=== PATIENT | female | born 2000 | race Caucasian/White ===

== ENCOUNTER 2020-11-19 00:56 | Emergency (ER) | payer BC ==
[~2020-11-19] VITALS: Ht 175.3 cm; Wt 118.8 kg
[2020-11-19 02:33] LABS: BASOPHILS # (AUTO) 0.1 10^3/uL (0.0-0.1); BASOPHILS % (AUTO) 1 % (0-10); EOSINOPHILS # (AUTO) 0.2 10^3/uL (0.0-0.3); EOSINOPHILS % (AUTO) 2 % (0-10); HEMATOCRIT 41 % (35-52); HEMOGLOBIN 13.3 g/dL (11.5-16.0); LYMPHOCYTES # (AUTO) 2.3 10^3/uL (1.0-4.0); LYMPHOCYTES % (AUTO) 19 % (12-44); MEAN CORPUSCULAR HEMOGLOBIN 28 pg (25-34); MEAN CORPUSCULAR HGB CONC 33 g/dL (32-36); MEAN CORPUSCULAR VOLUME 87 fL (80-99); MEAN PLATELET VOLUME 9.1 fL (9.0-12.2); MONOCYTES # (AUTO) 0.7 10^3/uL (0.0-1.0); MONOCYTES % (AUTO) 6 % (0-12); NEUTROPHILS # (AUTO) 8.6 10^3/uL (1.8-7.8); NEUTROPHILS % (AUTO) 73 % (42-75); PLATELET COUNT 431 10^3/uL (130-400); WHITE BLOOD COUNT 11.9 10^3/uL (4.3-11.0)
[2020-11-19 02:34] LABS: BILIRUBIN,URINE NEGATIVE (NEGATIVE); CLARITY,URINE CLEAR; COLOR,URINE YELLOW; GLUCOSE, URINE (UA) NEGATIVE (NEGATIVE); KETONES,URINE NEGATIVE (NEGATIVE); LEUKOCYTE ESTERASE ,URINE NEGATIVE (NEGATIVE); NITRITE,URINE NEGATIVE (NEGATIVE); PROTEIN,URINE NEGATIVE (NEGATIVE)
[2020-11-19 02:42] LABS: ALBUMIN 4.1 GM/DL (3.2-4.5)
[2020-11-19 02:42] LABS: BACTERIA,URINE NEGATIVE /HPF; SQUAMOUS EPITHELIAL CELL,UR 0-2 /HPF
[2020-11-19 02:43] LABS: POTASSIUM 3.7 MMOL/L (3.6-5.0)
[2020-11-19 02:44] LABS: CALCIUM 9.6 MG/DL (8.5-10.1)
[2020-11-19 02:45] LABS: TOTAL PROTEIN 7.7 GM/DL (6.4-8.2)
[2020-11-19 02:47] LABS: BILIRUBIN,TOTAL 0.4 MG/DL (0.1-1.0)
[2020-11-19 02:49] LABS: CREATININE SERUM 0.72 MG/DL (0.60-1.30)
--- NOTE | 2020-11-19 02:58 | ED Abdominal Pain ---
General Chief Complaint: Abdominal/GI Problems Stated Complaint: ABD PAIN / NAUSEA Nursing Triage Note: TO ED VIA POV AND AMBULATORY TO ROOM 6 WITH C/O ABD PAIN THAT RADIATES TO BACK. STARTED AT APPROX 1800 AND NOW WORSE. NAUSEA EARLIER THIS EVENING, BUT NOT AT THIS TIME. DENIES VOMITING/DIARRHEA. Source of Information: Patient History of Present Illness Date Seen by Provider: Nov 19, 2020 Time Seen by Provider: 02:15 Initial Comments PT ARRIVES VIA POV FROM HOME--PT IS [employer] C/O GENERALIZED ABDOMINAL PAIN SINCE AROUND 1800 TONIGHT PAIN COMES AND GOES, AND IS WORSE WITH MOVEMENTS, AND BETTER WHEN LAYING STILL. DOES NOT HAVE MUCH PAIN RIGHT NOW ATE AROUND 1700 AND PAIN BEGAN ABOUT AN HOUR AFTER SHE ATE. ATE A CHICKEN WRAP FROM [place] HAS HAD COFFEE TO DRINK SINCE THEN HAS HAD MILD NAUSEA, NO VOMITING HAD VERY SMALL BM AROUND 1900, HAD NORMAL BM YESTERDAY NO FEVER NO URINARY SYMPTOMS DOES HAVE SOME MID BACK PAIN WELL HAS NOT TAKEN ANYTHING FOR PAIN HAD A SIMILAR EPISODE ABOUT 2 MONTHS AGO, BUT ONLY LASTED ABOUT AN HOUR AND WENT AWAY, BUT ALSO OCCURRED AFTER SHE ATE DID NOT SEEK CARE AT THAT TIME STARTED ON ANXIETY MEDICATION ABOUT 2 MONTHS AGO PCP: PT IS [employer] FROM [place] [place] Allergies and Home Medications Allergies Coded Allergies: No Known Drug Allergies (Unverified , 11/19/20) Home Medications Hyoscyamine Sulfate 0.125 Mg Tab.subl, 0.25 MG SL Q4H Prescribed by: ADRIANNA CRUZ on 11/19/20421 Ondansetron 4 Mg Tab.rapdis, 4 MG PO Q4H Prescribed by: ADRIANNA CRUZ on 11/19/20421 Pantoprazole Sodium 40 Mg Tablet.dr, 40 MG PO DAILY Prescribed by: ADRIANNA CRUZ on 11/19/20421 Patient Home Medication List Home Medication List Reviewed: Yes Review of Systems Review of Systems Constitutional: no symptoms reported Respiratory: No Symptoms Reported Cardiovascular: No Symptoms Reported Gastrointestinal: See HPI, Abdominal Pain, Constipated; Denies Diarrhea; Nausea; Denies Vomiting Genitourinary: No Symptoms Reported Musculoskeletal: back pain Skin: no symptoms reported Psychiatric/Neurological: No Symptoms Reported Endocrine: No Symptoms Reported Past Vlyjqie-Brbyjz-Uigmrs Hx Patient Social History Tobacco Use?: No Substance use?: No Alcohol Use?: Yes Alcohol Frequency: Once in a while Immunizations Up To Date First/Initial COVID19 Vaccinat: MAY Second COVID19 Vaccination Stew: JUNE COVID19 Vaccine Compliance Specialist: GHULAM Past Medical History Surgeries: No Respiratory: No Cardiac: No Neurological: No Last Menstrual Period: Nov 18, 2020 Reproductive Disorders: No Gastrointestinal: No Musculoskeletal: No Endocrine: Yes (OBESITY) Psychosocial: Yes Anxiety Integumentary: No Blood Disorders: No Physical Exam Vital Signs Vital Signs - First Documented 11/19/20 01:52 Temp 37.0 Pulse 88 Resp 16 B/P (MAP) 152/94 (113) Pulse Ox 97 O2 Delivery Room Air Capillary Refill : Less Than 3 Seconds Height/Weight/BMI Height: '" Weight: lbs. oz. kg; 38.00 BMI Method: General Appearance: WD/WN, no apparent distress, obese, other (TEXTING ON PHONE, DOES NOT APPEAR TO BE IN ANY DISCOMFORT OR DISTRESS. WALKS UPRIGHT AND MOVES WITHOUT DIFFICULTY) Respiratory: normal breath sounds, no respiratory distress, no accessory muscle use Cardiovascular: regular rate, rhythm, no murmur Gastrointestinal: soft; No distended, No guarding, No rebound; tenderness (MILD EPIGASTRIC TENDERNESS) Extremities: normal inspection Back: no CVA tenderness Neurologic/Psychiatric: no motor/sensory deficits, alert, normal mood/affect, oriented x 3 Skin: normal color, warm/dry; No rash Progress/Results/Core Measures Results/Orders Lab Results Laboratory Tests Test 11/19/20 01:57 11/19/20 02:20 Range/Units Urine Color YELLOW Urine Clarity CLEAR Urine pH 7.0 5-9 Urine Specific Hinkley 1.020 1.016-1.022 Urine Protein NEGATIVE NEGATIVE Urine Glucose (UA) NEGATIVE NEGATIVE Urine Ketones NEGATIVE NEGATIVE Urine Nitrite NEGATIVE NEGATIVE Urine Bilirubin NEGATIVE NEGATIVE Urine Urobilinogen 0.2 < = 1.0 MG/DL Urine Leukocyte Esterase NEGATIVE NEGATIVE Urine RBC (Auto) NEGATIVE NEGATIVE Urine RBC NONE /HPF Urine WBC NONE /HPF Urine Squamous Epithelial Cells 0-2 /HPF Urine Crystals NONE /LPF Urine Bacteria NEGATIVE /HPF Urine Casts NONE /LPF Urine Mucus NEGATIVE /LPF Urine Culture Indicated NO White Blood Count 11.9 H 4.3-11.0 10^3/uL Red Blood Count 4.68 3.80-5.11 10^6/uL Hemoglobin 13.3 11.5-16.0 g/dL Hematocrit 41 35-52 % Mean Corpuscular Volume 87 80-99 fL Mean Corpuscular Hemoglobin 28 25-34 pg Mean Corpuscular Hemoglobin Concent 33 32-36 g/dL Red Cell Distribution Width 12.4 10.0-14.5 % Platelet Count 431 H 130-400 10^3/uL Mean Platelet Volume 9.1 9.0-12.2 fL Immature Granulocyte % (Auto) 0 % Neutrophils (%) (Auto) 73 42-75 % Lymphocytes (%) (Auto) 19 12-44 % Monocytes (%) (Auto) 6 0-12 % Eosinophils (%) (Auto) 2 0-10 % Basophils (%) (Auto) 1 0-10 % Neutrophils # (Auto) 8.6 H 1.8-7.8 10^3/uL Lymphocytes # (Auto) 2.3 1.0-4.0 10^3/uL Monocytes # (Auto) 0.7 0.0-1.0 10^3/uL Eosinophils # (Auto) 0.2 0.0-0.3 10^3/uL Basophils # (Auto) 0.1 0.0-0.1 10^3/uL Immature Granulocyte # (Auto) 0.0 0.0-0.1 10^3/uL Sodium Level 138 135-145 MMOL/L Potassium Level 3.7 3.6-5.0 MMOL/L Chloride Level 107 98-107 MMOL/L Carbon Dioxide Level 21 21-32 MMOL/L Anion Gap 10 5-14 MMOL/L Blood Urea Nitrogen 10 7-18 MG/DL Creatinine 0.72 0.60-1.30 MG/DL Estimat Glomerular Filtration Rate 102 BUN/Creatinine Ratio 14 Glucose Level 118 H 70-105 MG/DL Calcium Level 9.6 8.5-10.1 MG/DL Corrected Calcium 9.5 8.5-10.1 MG/DL Total Bilirubin 0.4 0.1-1.0 MG/DL Aspartate Amino Transf (AST/SGOT) 21 5-34 U/L Alanine Aminotransferase (ALT/SGPT) 32 0-55 U/L Alkaline Phosphatase 97 40-136 U/L Total Protein 7.7 6.4-8.2 GM/DL Albumin 4.1 3.2-4.5 GM/DL Amylase Level 57 25-125 U/L Lipase 14 8-78 U/L My Orders Orders - ADRIANNA CRUZ DO Ed Iv/Invasive Line Start (11/19/20 02:21) Urine Bedside (11/19/20 02:21) Amylase (11/19/20 02:21) Cbc With Automated Diff (11/19/20 02:21) Comprehensive Metabolic Panel (11/19/20 02:21) Lipase (11/19/20 02:21) Ua Culture If Indicated (11/19/20 02:21) Ct Abd/Pelv W (Appendicitis) (11/19/20 02:40) Iohexol Injection (Omnipaque 350 Mg/Ml 1 (11/19/20 03:30) Ns (Ivpb) (Sodium Chloride 0.9% Ivpb Bag (11/19/20 03:30) Medications Given in ED Current Medications Medications Dose Ordered Sig/Chanelle Route Start Time Stop Time Status Last Admin Dose Admin Iohexol 100 ml ONCE ONCE IV 11/19/20 03:30 11/19/20 03:31 DC 11/19/20 03:23 100 ML Sodium Chloride 80 ml ONCE ONCE IV 11/19/20 03:30 11/19/20 03:31 DC 11/19/20 03:23 80 ML Vital Signs/I&O 11/19/20 01:52 Temp 37.0 Pulse 88 Resp 16 B/P (MAP) 152/94 (113) Pulse Ox 97 O2 Delivery Room Air Blood Pressure Mean: 113 Progress Progress Note : Progress Note PAIN -FREE AT DISMISSAL DISCUSSED POSSIBLE CAUSES, INCLUDING CONSTIPATION, GALLBLADDER DISEASE AND GASTRITIS/ULCERS, AND OTHER OUTPATIENT TESTS THAT MIGHT BE NEEDED FOR FURTHER EVALUATION IF HER SYMPTOMS PERSIST. ADVISED HER TO FOLLOW UP WITH [facility] THIS WEEK FOR FURTHER EVALUATION Diagnostic Imaging Comments CT ABDOMEN / PELVIS--NO ACUTE PROCESS, PER [facility] VIA FAX AT 3658 Reviewed: Reviewed by Me Departure Impression Primary Impression: Abdominal pain Disposition: 01 HOME, SELF-CARE Condition: Improved Departure-Patient Inst. Decision time for Depature: 04:15 Referrals: NO,LOCAL PHYSICIAN (PCP) Primary Care Physician AMEE WU MD Patient Instructions: Abdominal Pain, Adult ED Add. Discharge Instructions: LOTS OF CLEAR LIQUIDS--WATER, BROTH, JELLO, GATORADE TAKE MIRALAX--YOU MAY TAKE A DOSE EVERY 2-3 HOURS UNTIL YOUR BOWELS HAVE CLEARED, THEN USE ONCE A DAY FOLLOW UP WITH [facility] LATER THIS WEEK FOR FURTHER CARE, RETURN TO ER IF WORSE All discharge instructions reviewed with patient and/or family. Voiced understanding. Scripts Ondansetron (Ondansetron Odt) 4 Mg Tab.rapdis 4 MG PO Q4H for Nausea/Vomiting, #10 TAB Prov: ADRIANNA CRUZ DO 11/19/20 Pantoprazole Sodium (Protonix) 40 Mg Tablet.dr 40 MG PO DAILY, #15 TAB Prov: ADRIANNA CRUZ DO 11/19/20 Hyoscyamine Sulfate (Levsin-Sl) 0.125 Mg Tab.subl 0.25 MG SL Q4H, #10 TAB Prov: ADRIANNA CRUZ DO 11/19/20 ADRIANNA CRUZ DO Nov 19, 2020 02:58
[2020-11-19] MEDS ORDERED: NS 100 ML (IVPB) BAG IV ONE (03:30)
[2020-11-19] MEDS ORDERED: IOHEXOL 350 MG/ML 100 ML (OMNIPAQUE 350) VIAL IV ONE (03:30)
[2020-11-19] MEDS ORDERED: PANT40TA2 PO (04:22)
[2020-11-19] MEDS ORDERED: ONDA4TAB11 PO (04:22)
[2020-11-19] MEDS ORDERED: HYOS0.1283 SL (04:22)
[2020-11-19 04:27] VITALS: BP 125/84
--- NOTE | 2020-11-19 06:59 | Diagnostic Imaging Report ---
PROCEDURE: CT abdomen and pelvis with contrast, rule out appendicitis. TECHNIQUE: Multiple contiguous axial images were obtained through the abdomen and pelvis after the administration of intravenous contrast. All CT scans use one or more of the following dose optimizing techniques: automated exposure control, MA and/or KvP adjustment based on patient size and exam type or iterative reconstruction. INDICATION: Right lower quadrant pain EXAMINATION: CT abdomen and pelvis with contrast 11/19/2020 FINDINGS: Lung bases are clear. Osseous structures unremarkable. Liver, spleen, adrenal glands, pancreas, and gallbladder are unremarkable. Kidneys within normal limits. There is no ascites or free air. No adenopathy. Appendix normal. IMPRESSION: 1. Unremarkable abdominal structures with appendix normal in appearance. Findings agree with the preliminary report. Dictated by: Dictated on workstation # [id number]
== END 2020-11-19 04:27 | disposition home or self-care (01) ==
LOC: ER 01:02
DX: R10.84 Generalized abdominal pain (principal); F41.9 Anxiety disorder, unspecified; E66.9 Obesity, unspecified; Z68.38 Body mass index [BMI] 38.0-38.9, adult
CPT/HCPCS: 36415; 74177; 80053; 81000; 82150; 83690; 84703; 85025